=== PATIENT | male | born 1995 | race African-American/Black ===

== ENCOUNTER 2020-01-01 12:17 | Emergency (ER) | payer OTHER ==
[~2020-01-01] VITALS: Ht 188 cm; Wt 77.0 kg
[2020-01-01 12:23] VITALS: BP 136/71
[2020-01-01] MEDS ORDERED: BACITRACIN ZINC OINT UDPKT TOP ONE (13:15)
== END 2020-01-01 14:08 | disposition home or self-care (01) ==
LOC: ER 12:38
DX: Z48.00 Encounter for change or removal of nonsurgical wound dressing (principal)
CPT/HCPCS: 99282

== ENCOUNTER 2024-06-02 10:09 | Emergency (ER) | payer MEDICAID ==
[~2024-06-02] VITALS: Ht 185.4 cm; Wt 93.0 kg
[2024-06-02 10:11] VITALS: O2SAT 98
[2024-06-02 11:12] VITALS: BP 135/72; PULSE 81; RESP 16; TEMP 36.9; O2SAT 98
== END 2024-06-02 11:12 | disposition home or self-care (01) ==
LOC: ER 10:09
DX: M25.531 Pain in right wrist (principal); F10.90 Alcohol use, unspecified, uncomplicated; Y90.9 Presence of alcohol in blood, level not specified
CPT/HCPCS: 99283; 73110; A6449; A4565

== ENCOUNTER 2024-06-07 11:09 | Emergency (ER) | payer MEDICAID, OTHER ==
[~2024-06-07] VITALS: Ht 188 cm; Wt 105.0 kg
[2024-06-07 11:11] VITALS: O2SAT 99
[2024-06-07 12:28] LABS: CLARITY URINE CLEAR (CLEAR); COLOR URINE DARK YELLOW (YELLOW); GLUCOSE URINE NEGATIVE (NEGATIVE); KETONES URINE 2+ (NEGATIVE); LEUKOCYTE ESTERASE URINE TRACE (NEGATIVE); NITRITE URINE NEGATIVE (NEGATIVE); OCCULT BLOOD URINE NEGATIVE (NEGATIVE); PROTEIN URINE 1+ (NEGATIVE); SPECIFIC GRAVITY URINE 1.031 (1.005-1.030)
[2024-06-07 12:38] LABS: BACTERIA URINE NONE SEEN; RBC URINE 0-2 /hpf (0-2); SQUAMOUS EPITHELIAL CELL URINE 1+ /lpf (RARE/1+); YEAST URINE NONE SEEN
[2024-06-07 13:03] LABS: BASOPHILS % 0.3 % (0.0-2.0); DIFFERENTIAL COMMENT 0; EOSINOPHILS % 0.2 % (0.0-5.0); HEMATOCRIT. 44.4 % (42.0-52.0); HEMOGLOBIN. 13.7 g/dL (14.0-18.0); LYMPHOCYTES % 16.4 % (20.0-50.0); MEAN CORPUSCULAR HEMOGLOBIN 23.1 pg (28.0-32.0); MEAN CORPUSCULAR HGB CONC 30.8 g/dL (31.0-37.0); MEAN CORPUSCULAR VOLUME 75.2 fL (80.0-94.0); MEAN PLATELET VOLUME 9.2 fl (7.4-10.4); MONOCYTES % 10.8 % (2.0-8.0); NEUTROPHILS % 72.3 % (40.0-76.0); PLATELET 203 x1000/uL (130-400); RED BLOOD CELL COUNT 5.91 mill/uL (4.7-6.1); RED CELL DISTRIBUTION WIDTH 14.4 % (11.6-14.6); WHITE BLOOD COUNT 8.3 x1000/uL (4.5-11.0)
[2024-06-07 13:19] LABS: CHLORIDE 106 mEq/L (98-107); SODIUM 139 mEq/L (136-145)
[2024-06-07 13:20] LABS: CALCIUM 10.7 mg/dL (8.7-10.4); CARBON DIOXIDE 25 mEq/L (21-32)
[2024-06-07] MEDS: ACETAMINOPHEN 500MG TABLET PO ONE (13:21)
[2024-06-07 13:25] LABS: CREATININE 1.1 mg/dL (0.6-1.3); GLUCOSE 94 mg/dL (70-105); UREA NITROGEN BLOOD 13 mg/dL (9-23)
[2024-06-07 13:27] LABS: ALANINE AMINOTRANSFERASE 314 IU/L (10-49); ASPARTATE AMINOTRANSFERASE 141 IU/L (<34); BILIRUBIN TOTAL 0.7 mg/dL (0.1-1.0); PROTEIN TOTAL 8.2 g/dL (6.0-8.3)
[2024-06-07] MEDS ORDERED: IOHEXOL-300 100 ML BOTTLE ONE (13:47)
[2024-06-07 14:16] VITALS: BP 144/83; PULSE 69; RESP 21; TEMP 37.1; O2SAT 97
== END 2024-06-07 14:36 | disposition home or self-care (01) ==
LOC: ER 11:09
DX: K40.20 Bilateral inguinal hernia, without obstruction or gangrene, not specified as recurrent (principal); F32.A Depression, unspecified; F43.10 Post-traumatic stress disorder, unspecified; F10.90 Alcohol use, unspecified, uncomplicated; F12.90 Cannabis use, unspecified, uncomplicated; Y90.9 Presence of alcohol in blood, level not specified
CPT/HCPCS: 80053; 81003; 83605; 83690; 85025; 36415; 74177; 99285; Q9967; Z7610

== ENCOUNTER 2024-06-08 14:28 | Emergency (ER) | payer OTHER ==
[~2024-06-08] VITALS: Ht 185.4 cm; Wt 100.0 kg
[2024-06-08 14:32] VITALS: O2SAT 99
[2024-06-08 14:37] VITALS: BP 146/89; PULSE 96; RESP 16; TEMP 36.9; O2SAT 100
== END 2024-06-08 16:26 | disposition left against medical advice (07) ==
LOC: ER 14:28
DX: R10.9 Unspecified abdominal pain (principal); Z53.21 Procedure and treatment not carried out due to patient leaving prior to being seen by health care provider

== ENCOUNTER 2024-07-14 10:12 | Emergency (ER) | payer OTHER ==
[~2024-07-14] VITALS: Ht 180.3 cm; Wt 90.0 kg
[2024-07-14 10:21] VITALS: O2SAT 100
[2024-07-14] MEDS: BACITRACIN ZINC OINT UDPKT TOP ONE (11:40)
[2024-07-14] MEDS: LIDOCAINE HCL/PF 1% 10 MG/ML 5ML VIAL INFIL ONE (11:40)
[2024-07-14] MEDS: TETANUS, DIPHTHERIA, PERTUSSIS VAC/PF 0.5ML (>10YR OLD) IM ONE (11:46)
[2024-07-14] MEDS ORDERED: AMOX1TAB16 MT (13:08)
[2024-07-14 13:28] VITALS: BP 133/81; PULSE 66; RESP 17; TEMP 37.1; O2SAT 100
== END 2024-07-14 13:29 | disposition home or self-care (01) ==
LOC: ER 10:12
DX: S01.511A Laceration without foreign body of lip, initial encounter (principal); F10.90 Alcohol use, unspecified, uncomplicated; F12.90 Cannabis use, unspecified, uncomplicated; V89.2XXA Person injured in unspecified motor-vehicle accident, traffic, initial encounter; Y93.89 Activity, other specified; Y92.410 Unspecified street and highway as the place of occurrence of the external cause; Y99.8 Other external cause status; Y90.9 Presence of alcohol in blood, level not specified
CPT/HCPCS: 90715; 12011; 90471; 99283; J2003; Z7610 ×2